=== PATIENT | male | born 1940 | race Caucasian/White ===

== ENCOUNTER 2017-01-22 16:29 | Emergency (ER) | payer OTHER ==
[~2017-01-22] VITALS: Ht 182.9 cm; Wt 86.2 kg
--- NOTE | ~2017-01-22 | EKG ---
[place] [address] [facility] [place] [address] ELECTROCARDIOGRAM REPORT Name: ROSITA SHARMA Room #: DEP [facility]ITAL[facility] [id number] Admission: 01/22/17 Attend Phys: Discharge: 01/22/17 Date of : 40 Report #: [id number] THIS REPORT FOR: //name// [facility] ED Test Date: 2017-01-22 Test Time: 16:53:05 Pat Name: ROSITA SHARMA Department: Room: Gender: M Document Control Supervisor: [id number] : 1940 Requested By: Kathia Valentin Order Number: [id number] MD: Matteo Crowell Measurements Intervals [place] Rate: 60 P: 23 AL: 180 QRS: 91 QRSD: 162 T: 20 QT: 427 QTc: 427 Interpretive Statements Sinus rhythm RBBB and LPFB Compared to ECG 03/29/2011 14:53:10 Left posterior fascicular block now present Right bundle-branch block now present Sinus bradycardia no longer present Electronically Signed On 01-23-2017 10:11:43 CDT by Matteo Crowell [email or web address] <ELECTRONICALLY SIGNED> By: Matteo Crowell MD, [facility] 01/23/17 1011 [id number] Matteo Crowell MD, [facility] /EPI
[~2017-01-22 16:29] MED LIST: AMBEREN; ASPIRIN325 PO; FISHOIL; FLEXERIL PO; HYDROCODONE-AP1 EA15 PO; KEFLEX500 MG PO; LISINOPRIL20 MG PO; PREDNISONE50 MG PO
[2017-01-22 17:09] LABS: HEMATOCRIT 39.3 % (42.0-52.0); HEMOGLOBIN 13.4 gm/dL (14.0-18.0); MANUAL DIFF YES; MCH 32.2 pg (26.0-34.0); MCV 94.7 fL (80.0-100.0); PLATELET COUNT 244 thou/uL (150-400); RBC 4.15 mil/uL (4.50-6.00); RDW 13.4 % (10.5-14.5); WBC 8.1 thou/uL (4.0-11.0)
[2017-01-22 17:16] LABS: CALCIUM 8.8 mg/dL (8.5-10.1); CREATININE 1.1 mg/dL (0.7-1.3)
[2017-01-22 17:20] LABS: INR 1.1; PROTIME 11.4 Seconds (9.3-11.4)
[2017-01-22 17:21] LABS: ALBUMIN 3.3 g/dL (3.4-5.0); TOTAL BILIRUBIN 0.3 mg/dL (<0.1-1.0); TOTAL PROTEIN 6.8 g/dL (6.4-8.2)
[2017-01-22 17:41] LABS: ANISOCYTOSIS 1+; TOTAL CELL COUNT 100
[2017-01-22 17:44] LABS: URINE BILIRUBIN NEGATIVE (Negative); URINE BLOOD 1+ (Negative); URINE COLOR YELLOW; URINE GLUCOSE-RANDOM* NEGATIVE (Negative); URINE KETONES NEGATIVE (Negative); URINE NITRITE NEGATIVE (Negative); URINE PROTEIN (DIPSTICK) NEGATIVE (Negative); URINE SPECIFIC GRAVITY 1.015 (1.003-1.035); URINE UROBILINOGEN 0.2 E.U./dl (0.2-1.0)
[2017-01-22 17:52] LABS: BACTERIA None Seen /HPF (None Seen); CASTS None Seen /LPF (None Seen); CRYSTALS None Seen /LPF (None Seen); SQUAMOUS 0-3 Few /LPF (0-3); URINE WBC 0-5 Rare /HPF (0-5)
[2017-01-22 17:53] LABS: URINE RBC 0-2 Rare /HPF (0-2)
[2017-01-22 18:18] VITALS: BP 149/55
== END 2017-01-22 18:21 | disposition home or self-care (01) ==
LOC: ER 16:29
PROVIDERS: Nurse Practitioner Family
DX: K62.5 Hemorrhage of anus and rectum (principal); F10.99 Alcohol use, unspecified with unspecified alcohol-induced disorder; Z88.5 Allergy status to narcotic agent; Z91.040 Latex allergy status

== ENCOUNTER → 2019-10-16 | Outpatient (CLI) | payer MEDICARE | LOC: SJCVC 11:43 | DX: I45.10 Unspecified right bundle-branch block (principal); R94.31 Abnormal electrocardiogram [ECG] [EKG]; I95.1 Orthostatic hypotension; I25.10 Atherosclerotic heart disease of native coronary artery without angina pectoris; E78.5 Hyperlipidemia, unspecified; C15.9 Malignant neoplasm of esophagus, unspecified; E78.2 Mixed hyperlipidemia; I10 Essential (primary) hypertension; K21.9 Gastro-esophageal reflux disease without esophagitis; I48.0 Paroxysmal atrial fibrillation; Z79.899 Other long term (current) drug therapy; Z87.891 Personal history of nicotine dependence ==

== ENCOUNTER 2020-03-07 23:26 | Emergency (ER) | payer MEDICARE ==
[~2020-03-07] VITALS: Ht 180.3 cm; Wt 81.7 kg
[2020-03-08] MEDS ORDERED: LIPITOR 20 MG T20 M1 PO (00:01)
[2020-03-08] MEDS ORDERED: PROTONIX 20 MG20 MG PO (00:02)
[2020-03-08 00:23] LABS: HEMATOCRIT 36.7 % (42.0-52.0); HEMOGLOBIN 12.2 gm/dL (14.0-18.0); MCH 33.1 pg (26.0-34.0); MCHC 33.1 g/dL (28.0-37.0); MCV 99.9 fL (80.0-100.0); PLATELET COUNT 267 thou/uL (150-400); RBC 3.68 mil/uL (4.50-6.00); RDW 15.1 % (10.5-14.5); WBC 10.2 thou/uL (4.0-11.0)
[2020-03-08 00:26] LABS: CALCIUM 7.9 mg/dL (8.5-10.1); POTASSIUM 3.5 mmol/L (3.5-5.1)
[2020-03-08 01:11] LABS: PLATELET ESTIMATE NORMAL
[2020-03-08 03:53] VITALS: BP 123/53
== END 2020-03-08 03:57 | disposition home or self-care (01) ==
LOC: ER 23:26
PROVIDERS: Emergency Medicine
DX: E16.2 Hypoglycemia, unspecified (principal); R61 Generalized hyperhidrosis; Z85.01 Personal history of malignant neoplasm of esophagus; Z79.899 Other long term (current) drug therapy; Z79.82 Long term (current) use of aspirin; Z91.040 Latex allergy status; Z88.8 Allergy status to other drugs, medicaments and biological substances